=== PATIENT | male | born 1955 | race Caucasian/White ===

== ENCOUNTER 2019-10-26 09:21 | Day surgery (SDC) | payer OTHER ==
[~2019-10-26] VITALS: Ht 185.4 cm; Wt 96.6 kg
[~2019-10-26 09:21] MED LIST: ASPIR 8181 MG PO; LISINOPRIL20 MG PO; MULTI-VITAMIN1 EACH PO; OMEGA 3 1,0001 EACH PO
--- NOTE | 2019-10-26 10:30 | NUR ---
10/26/19 1029 Sheets,Ivonne 1023 PT ARRIVED TO PACU ON 3L VIA NC, PT ASLEEP AND SNORING NOTED.
--- NOTE | 2019-10-27 07:29 | OR ---
[facility] [address], [place] [address] Signed DATE OF OPERATION: 10/26/2019 SURGEON: Epi Olea MD PREOPERATIVE DIAGNOSIS: Screening. POSTOPERATIVE DIAGNOSES: 1. Minimal external hemorrhoids. 2. Minimal internal anal skin tags. 3. Minimal sigmoid diverticulosis. PROCEDURE PERFORMED: Colonoscopy without biopsy. ESTIMATED BLOOD LOSS: None. 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 He has no lower GI complaints. There is no family history of colon cancer or polyps. In the office, I gave Edu a pamphlet on colonoscopy. He understands the nature of the test along with its risks including, but not limited to gas, bloating, crampy abdominal pain, bleeding, perforation requiring surgery, and missed diagnosis. He also understands the need for IV conscious sedation. He has expressed understanding and would like to proceed. PROCEDURE NOTE: Edu was taken into our endoscopy suite and placed in the left lateral decubitus position. He was given IV sedation with 6 mg of Versed and 150 mcg of fentanyl. A digital rectal exam was performed and he has just some small external hemorrhoid tissue. He also has some minimal internal anal skin tags. Prostate is a little indurated and swollen. The adult colonoscope was introduced and advanced all around into the cecum under direct visualization of camera without difficulty. His prep was good. We could easily see his appendiceal orifice and the ileocecal valve. The scope was slowly withdrawn. Pictures were taken throughout for photodocumentation. He has no polyps throughout the colon or rectum. He had a few diverticula in the sigmoid colon. They are moderate size, minimal in number, and scattered about. Upon retroflexion of the scope, he has some tiny internal anal skin tags. After this, the gas was suctioned out and colonoscope removed. Edu tolerated the procedure quite well. Electronically Signed By: EPI OLEA MD 10/27/19 0729 PATIENT NAME: EDU CRAWFORD OPERATIVE REPORT DATE OF : 51 REPORT #: [id number] PHYSICIAN: EPI OLEA MD PCP: ANDREIA LYON MD REPORT IS CONFIDENTIAL AND NOT TO BE RELEASED WITHOUT AUTHORIZATION [address] [address] Signed RECOMMENDATIONS: Edu can follow up in 10 years for repeat colonoscopy. MD AUBRIE Boo/TYL /[id number] cc: MD Epi Brown MD Copies: ANDREIA LYON DMD, ANDREW L MD ~ Electronically Signed By: EPI OLEA MD 10/27/19 0729 PATIENT NAME: EDU CRAWFORD OPERATIVE REPORT DATE OF : 51 REPORT #: [id number] PHYSICIAN: EPI OLEA MD PCP: ANDREIA LYON MD REPORT IS CONFIDENTIAL AND NOT TO BE RELEASED WITHOUT AUTHORIZATION
== END 2019-10-26 11:30 | disposition home or self-care (01) ==
LOC: OPS 09:21
PROVIDERS: Colon & Rectal Surgery
PROC: 0DJD8ZZ Inspection of Lower Intestinal Tract, Via Natural or Artificial Opening Endoscopic (ICD-10-PCS; principal; 2019-10-26 10:30)
DX: Z12.11 Encounter for screening for malignant neoplasm of colon (principal); K64.4 Residual hemorrhoidal skin tags; K57.30 Diverticulosis of large intestine without perforation or abscess without bleeding; Z79.82 Long term (current) use of aspirin; Z79.899 Other long term (current) drug therapy; K21.9 Gastro-esophageal reflux disease without esophagitis; M43.16 Spondylolisthesis, lumbar region
CPT/HCPCS: 99153; G0500; J2250; J3010; J7121